=== PATIENT | female | born 1945 | race African-American/Black ===

== ENCOUNTER 2023-07-18 11:20 | Inpatient (IN) | payer MEDICAID ==
[~2023-07-18] VITALS: Ht 165.1 cm; Wt 108.0 kg
[2023-07-18] MEDS: ADENOSINE 3 MG/ML 2ML VIAL IV ONE ×2 (11:30→12:11)
[2023-07-18 12:08] LABS: BASOPHILS % 0.2 % (0.0-2.0); DIFFERENTIAL COMMENT 0; EOSINOPHILS % 1.4 % (0.0-5.0); HEMOGLOBIN. 12.4 g/dL (12.0-16.0); LYMPHOCYTES % 19.1 % (20.0-50.0); MEAN CORPUSCULAR HEMOGLOBIN 23.5 pg (28.0-32.0); MEAN CORPUSCULAR HGB CONC 31.9 g/dL (31.0-37.0); MEAN CORPUSCULAR VOLUME 73.7 fL (81.0-99.0); MEAN PLATELET VOLUME 8.1 fl (7.4-10.4); MONOCYTES % 4.4 % (2.0-8.0); NEUTROPHILS % 74.9 % (40.0-76.0); PLATELET 357 x1000/uL (130-400); RED BLOOD CELL COUNT 5.29 mill/uL (4.2-5.4); RED CELL DISTRIBUTION WIDTH 17.7 % (11.6-14.6); WHITE BLOOD COUNT 14.4 x1000/uL (4.5-11.0)
[2023-07-18] MEDS: SODIUM CHLORIDE 0.9% 1000ML BAG (SEPSIS BOLUS) IV ONE (12:11)
[2023-07-18 12:17] LABS: PROTHROMBIN TIME 11.1 sec (9.6-11.0)
[2023-07-18 12:21] LABS: CHLORIDE 108 mEq/L (98-107); POTASSIUM 3.6 mEq/L (3.5-5.1); SODIUM 142 mEq/L (136-145)
[2023-07-18 12:22] LABS: CARBON DIOXIDE 28 mEq/L (21-32)
[2023-07-18 12:23] LABS: CALCIUM 9.6 mg/dL (8.7-10.4)
[2023-07-18 12:27] LABS: CREATININE 0.9 mg/dL (0.6-1.0)
[2023-07-18 12:28] LABS: GLUCOSE 112 mg/dL (70-105); TROPONIN I HIGH SENSITIVITY 11 ng/L (3.0-34); UREA NITROGEN BLOOD 13 mg/dL (9-23)
[2023-07-18 12:29] LABS: ALANINE AMINOTRANSFERASE 10 IU/L (10-49); ASPARTATE AMINOTRANSFERASE 18 IU/L (<34)
[2023-07-18 12:30] LABS: ALBUMIN 3.6 g/dL (3.2-4.8); BILIRUBIN TOTAL 0.3 mg/dL (0.1-1.0); LACTIC ACID 2.7 mmol/L (0.4-2.0); PROTEIN TOTAL 7.4 g/dL (6.0-8.3)
[2023-07-18] MEDS: PIPERACILLIN/TAZO 3.375G/50ML 50 ML IV NR (13:30)
[2023-07-18] MEDS: VANCOMYCIN 1G PREMIX 200 ML IV NR (14:10)
[2023-07-18 14:29] LABS: TROPONIN I HIGH SENSITIVITY 12 ng/L (3.0-34)
[2023-07-19] VITALS (7 sets, daily range): BP systolic 128–168; BP diastolic 54–84; PULSE 66–77; RESP 18–20; TEMP 96.3–98
[2023-07-19] MEDS ORDERED: DEXTROSE 50% WATER 50ML SYRINGE IV PRN (03:30)
[2023-07-19] MEDS: BLOOD SUGAR DIAGNOSTIC STRIP TEST SCH (06:40)
[2023-07-19] MEDS: INSULIN LISPRO 100 UNITS/ML SUBCUT SCH (07:10)
[2023-07-19] MEDS: ASPIRIN 81MG TABLET PO SCH (09:34)
[2023-07-19] MEDS: METOPROLOL TARTRATE 50MG TABLET PO SCH (09:35)
[2023-07-19 16:22] LABS: BASOPHILS % 0.3 % (0.0-2.0); DIFFERENTIAL COMMENT 0; EOSINOPHILS % 1.6 % (0.0-5.0); HEMATOCRIT. 35.4 % (36.0-48.0); HEMOGLOBIN. 10.9 g/dL (12.0-16.0); LYMPHOCYTES % 15.2 % (20.0-50.0); MEAN CORPUSCULAR HEMOGLOBIN 22.9 pg (28.0-32.0); MEAN CORPUSCULAR HGB CONC 30.8 g/dL (31.0-37.0); MEAN CORPUSCULAR VOLUME 74.5 fL (81.0-99.0); MEAN PLATELET VOLUME 8.4 fl (7.4-10.4); MONOCYTES % 6.3 % (2.0-8.0); NEUTROPHILS % 76.6 % (40.0-76.0); PLATELET 339 x1000/uL (130-400); RED BLOOD CELL COUNT 4.75 mill/uL (4.2-5.4); RED CELL DISTRIBUTION WIDTH 17.8 % (11.6-14.6); WHITE BLOOD COUNT 16.4 x1000/uL (4.5-11.0)
[2023-07-19 16:32] LABS: CHLORIDE 109 mEq/L (98-107); POTASSIUM 3.7 mEq/L (3.5-5.1); SODIUM 142 mEq/L (136-145)
[2023-07-19 16:33] LABS: CARBON DIOXIDE 27 mEq/L (21-32)
[2023-07-19 16:34] LABS: CALCIUM 9.4 mg/dL (8.7-10.4)
[2023-07-19 16:38] LABS: CREATININE 0.8 mg/dL (0.6-1.0); GLUCOSE 98 mg/dL (70-105)
[2023-07-19 16:39] LABS: LDL CHOLESTEROL 111 mg/dL (5-100); TRIGLYCERIDE 86 mg/dL (0-150); UREA NITROGEN BLOOD 14 mg/dL (9-23)
[2023-07-19 16:40] LABS: TROPONIN I HIGH SENSITIVITY 9 ng/L (3.0-34)
[2023-07-19 16:41] LABS: CHOLESTEROL 141 mg/dL (<200); HDL CHOLESTEROL 32 mg/dL (>65)
[2023-07-19 16:43] LABS: THYROID STIMULATING HORMONE 3.02 uIU/mL (0.55-4.78)
[2023-07-19] MEDS: CEFTRIAXONE 1GM/50ML 50 ML IV SCH (21:12)
[2023-07-20] VITALS: BP 124/54; PULSE 64; RESP 20; TEMP 96.1
[2023-07-20 04:00] VITALS: BP 133/62; PULSE 65; RESP 18; TEMP 98.1
[2023-07-20] MEDS: ACETAMINOPHEN 325MG TABLET PO PRN (04:34)
[2023-07-20 06:26] LABS: BASOPHILS % 0.1 % (0.0-2.0); DIFFERENTIAL COMMENT 0; EOSINOPHILS % 2.1 % (0.0-5.0); HEMATOCRIT. 34.3 % (36.0-48.0); HEMOGLOBIN. 10.7 g/dL (12.0-16.0); LYMPHOCYTES % 18.6 % (20.0-50.0); MEAN CORPUSCULAR HEMOGLOBIN 22.7 pg (28.0-32.0); MEAN CORPUSCULAR HGB CONC 31.1 g/dL (31.0-37.0); MEAN PLATELET VOLUME 8.4 fl (7.4-10.4); NEUTROPHILS % 74.2 % (40.0-76.0); PLATELET 305 x1000/uL (130-400); RED CELL DISTRIBUTION WIDTH 17.5 % (11.6-14.6); WHITE BLOOD COUNT 15.3 x1000/uL (4.5-11.0)
[2023-07-20 06:37] LABS: CARBON DIOXIDE 27 mEq/L (21-32); CHLORIDE 107 mEq/L (98-107); POTASSIUM 3.9 mEq/L (3.5-5.1); SODIUM 141 mEq/L (136-145)
[2023-07-20 06:38] LABS: CALCIUM 9.5 mg/dL (8.7-10.4)
[2023-07-20 06:43] LABS: CREATININE 0.7 mg/dL (0.6-1.0); GLUCOSE 85 mg/dL (70-105); UREA NITROGEN BLOOD 15 mg/dL (9-23)
[2023-07-20 08:00] VITALS: BP 141/65; PULSE 68; RESP 20; TEMP 98
[2023-07-20 10:52] LABS: CLARITY URINE TURBID (CLEAR); COLOR URINE RED (YELLOW); GLUCOSE URINE NEGATIVE (NEGATIVE); KETONES URINE NEGATIVE (NEGATIVE); LEUKOCYTE ESTERASE URINE 2+ (NEGATIVE); NITRITE URINE NEGATIVE (NEGATIVE); OCCULT BLOOD URINE 3+ (NEGATIVE); PH URINE 5.5 (4.5-8.0); PROTEIN URINE 2+ (NEGATIVE); SPECIFIC GRAVITY URINE 1.025 (1.005-1.030); UROBILINOGEN URINE 0.2 E.U./dL (0.2-1.0)
[2023-07-20] MEDS: PANTOT AC/MIN OIL/PET HY-PHL OINT (AQUAPHOR) TOP SCH (11:12)
[2023-07-20 11:24] LABS: BACTERIA URINE TRACE; RBC URINE TNTC /hpf (0-2); SQUAMOUS EPITHELIAL CELL URINE 1+ /lpf (RARE/1+); WBC URINE 25-50 /hpf (0-2); YEAST URINE NONE SEEN
[2023-07-20 12:00] VITALS: BP 122/68; PULSE 60; RESP 20; TEMP 97.5
[2023-07-20] MEDS ORDERED: LEVO-65 MT (12:57)
[2023-07-20] MEDS ORDERED: METO-539 PO (12:57)
[2023-07-20 16:00] VITALS: BP 121/67; PULSE 64; RESP 20; TEMP 97.9
[2023-07-20 20:00] VITALS: BP 114/56; PULSE 60; RESP 18; TEMP 97.9
[2023-07-21] VITALS: BP 117/51; PULSE 62; RESP 19; TEMP 97.9
[2023-07-21 04:00] VITALS: BP 161/59; PULSE 68; RESP 18; TEMP 96.3
[2023-07-21 08:00] VITALS: BP 126/51; PULSE 66; RESP 18; TEMP 96.9
[2023-07-21 12:00] VITALS: BP 140/61; PULSE 70; RESP 18; TEMP 97.8
[2023-07-21] MEDS ORDERED: DILTIAZEM HCL 5MG/ML 5ML VIAL IV PRN (14:30)
[2023-07-21 16:00] VITALS: BP 153/84; PULSE 74; RESP 17; TEMP 97.1
[2023-07-21 20:00] VITALS: BP 163/59; PULSE 69; RESP 19; TEMP 97.9
[2023-07-21] MEDS: DILTIAZEM HCL 30MG TABLET PO SCH (21:29)
[2023-07-21 21:51] LABS: BASOPHILS % 0.3 % (0.0-2.0); DIFFERENTIAL COMMENT 0; EOSINOPHILS % 1.6 % (0.0-5.0); HEMOGLOBIN. 10.8 g/dL (12.0-16.0); LYMPHOCYTES % 13.9 % (20.0-50.0); MEAN CORPUSCULAR HEMOGLOBIN 22.3 pg (28.0-32.0); MEAN CORPUSCULAR HGB CONC 30.1 g/dL (31.0-37.0); MEAN CORPUSCULAR VOLUME 74.3 fL (81.0-99.0); MEAN PLATELET VOLUME 8.6 fl (7.4-10.4); MONOCYTES % 4.8 % (2.0-8.0); NEUTROPHILS % 79.4 % (40.0-76.0); PLATELET 292 x1000/uL (130-400); RED BLOOD CELL COUNT 4.85 mill/uL (4.2-5.4); RED CELL DISTRIBUTION WIDTH 17.8 % (11.6-14.6); WHITE BLOOD COUNT 16.8 x1000/uL (4.5-11.0)
[2023-07-21 21:59] LABS: CHLORIDE 106 mEq/L (98-107); POTASSIUM 4.4 mEq/L (3.5-5.1); SODIUM 139 mEq/L (136-145)
[2023-07-21 22:00] LABS: CARBON DIOXIDE 25 mEq/L (21-32)
[2023-07-21 22:01] LABS: CALCIUM 9.8 mg/dL (8.7-10.4)
[2023-07-21 22:05] LABS: CREATININE 0.9 mg/dL (0.6-1.0); GLUCOSE 103 mg/dL (70-105)
[2023-07-21 22:06] LABS: UREA NITROGEN BLOOD 14 mg/dL (9-23)
[2023-07-22] VITALS: BP 157/75; PULSE 68; RESP 19; TEMP 97.8
[2023-07-22 04:00] VITALS: BP 129/68; PULSE 76; RESP 19; TEMP 98
[2023-07-22 08:00] VITALS: BP 123/66; PULSE 76; RESP 18; TEMP 96.7
[2023-07-22 12:00] VITALS: BP 144/74; PULSE 78; RESP 18; TEMP 97.2
[2023-07-22] MEDS: VANCOMYCIN 1.5GM/250ML IV NR (12:20)
[2023-07-22 16:00] VITALS: BP 118/60; PULSE 80; RESP 18; TEMP 97.1
[2023-07-22 20:00] VITALS: BP 151/57; PULSE 80; RESP 19; TEMP 98
[2023-07-23] VITALS: BP 146/71; PULSE 76; RESP 20; TEMP 97.8
[2023-07-23 04:00] VITALS: BP 133/63; PULSE 76; RESP 19; TEMP 98.7
[2023-07-23 06:26] LABS: CARBON DIOXIDE 26 mEq/L (21-32); CHLORIDE 106 mEq/L (98-107); POTASSIUM 3.9 mEq/L (3.5-5.1); SODIUM 140 mEq/L (136-145)
[2023-07-23 06:27] LABS: CALCIUM 9.5 mg/dL (8.7-10.4)
[2023-07-23 06:32] LABS: CREATININE 0.7 mg/dL (0.6-1.0); GLUCOSE 83 mg/dL (70-105); UREA NITROGEN BLOOD 12 mg/dL (9-23)
[2023-07-23 06:47] LABS: BASOPHILS % 0.5 % (0.0-2.0); DIFFERENTIAL COMMENT 0; EOSINOPHILS % 2.2 % (0.0-5.0); HEMATOCRIT. 30.8 % (36.0-48.0); HEMOGLOBIN. 9.9 g/dL (12.0-16.0); LYMPHOCYTES % 18.9 % (20.0-50.0); MEAN CORPUSCULAR HEMOGLOBIN 23.3 pg (28.0-32.0); MEAN CORPUSCULAR VOLUME 72.8 fL (81.0-99.0); MEAN PLATELET VOLUME 8.9 fl (7.4-10.4); MONOCYTES % 5.3 % (2.0-8.0); NEUTROPHILS % 73.1 % (40.0-76.0); PLATELET 317 x1000/uL (130-400); RED BLOOD CELL COUNT 4.23 mill/uL (4.2-5.4); RED CELL DISTRIBUTION WIDTH 17.7 % (11.6-14.6); WHITE BLOOD COUNT 13.3 x1000/uL (4.5-11.0)
[2023-07-23 08:00] VITALS: BP 150/72; PULSE 77; RESP 20; TEMP 97.4
[2023-07-23 12:00] VITALS: BP 128/59; PULSE 65; RESP 18; TEMP 98.1
[2023-07-23] MEDS: VANCOMYCIN 1GM/200ML PMX (BAXTER) IV SCH (12:03)
[2023-07-23 16:00] VITALS: BP 150/76; PULSE 76; RESP 20; TEMP 97.3
[2023-07-23] MEDS ORDERED: *PATIENT'S OWN MEDICATION STORAGE XX SCH (19:00)
[2023-07-23 20:00] VITALS: BP 134/59; PULSE 77; RESP 18; TEMP 97.1
[2023-07-23] MEDS: MEDROXYPROGESTERONE ACET 5MG TABLET PO SCH (21:00)
[2023-07-24] VITALS: BP 137/56; PULSE 74; RESP 18; TEMP 97.2
[2023-07-24 04:00] VITALS: BP 142/55; PULSE 76; RESP 18; TEMP 97.3
[2023-07-24 08:00] VITALS: BP 143/76; PULSE 96; RESP 18; TEMP 97.4
[2023-07-24 12:00] VITALS: BP 156/68; PULSE 74; RESP 18; TEMP 97.9
[2023-07-24 16:00] VITALS: BP 146/73; PULSE 77; RESP 18; TEMP 98.1
[2023-07-24 20:00] VITALS: BP 126/57; PULSE 75; RESP 18; TEMP 97.7
[2023-07-25] VITALS: BP 128/60; PULSE 73; RESP 20; TEMP 97.7
[2023-07-25 04:00] VITALS: BP 146/62; PULSE 76; RESP 20; TEMP 97.5
[2023-07-25] MEDS: MORPHINE SULFATE 2 MG/ML CPJ (NOT FOR IM USE) IV ONE (07:32)
[2023-07-25] MEDS: MORPHINE SULFATE 2 MG/ML CPJ (NOT FOR IM USE) IV NR (08:32)
[2023-07-25 09:29] VITALS: BP 125/56; PULSE 74; RESP 18; TEMP 98.2
[2023-07-25] MEDS: VANCOMYCIN 1000MG/250ML IV SCH (12:00)
[2023-07-25 14:00] VITALS: BP 124/50; PULSE 71; RESP 18; TEMP 98
[2023-07-25 16:00] VITALS: BP 139/65; PULSE 75; RESP 20; TEMP 98
[2023-07-25 20:00] VITALS: BP 154/76; PULSE 80; RESP 17; TEMP 97.2
[2023-07-26] VITALS: BP 169/71; PULSE 81; RESP 20; TEMP 96.4
[2023-07-26 04:00] VITALS: BP 136/50; PULSE 77; RESP 18; TEMP 97.9
[2023-07-26 06:57] LABS: BASOPHILS % 0.2 % (0.0-2.0); DIFFERENTIAL COMMENT 0; HEMATOCRIT. 29.4 % (36.0-48.0); LYMPHOCYTES % 17.5 % (20.0-50.0); MEAN CORPUSCULAR HEMOGLOBIN 22.8 pg (28.0-32.0); MEAN CORPUSCULAR HGB CONC 30.7 g/dL (31.0-37.0); MEAN CORPUSCULAR VOLUME 74.4 fL (81.0-99.0); MEAN PLATELET VOLUME 8.4 fl (7.4-10.4); MONOCYTES % 5.6 % (2.0-8.0); NEUTROPHILS % 74.7 % (40.0-76.0); PLATELET 364 x1000/uL (130-400); RED BLOOD CELL COUNT 3.95 mill/uL (4.2-5.4); RED CELL DISTRIBUTION WIDTH 18.1 % (11.6-14.6); WHITE BLOOD COUNT 16.1 x1000/uL (4.5-11.0)
[2023-07-26 07:21] LABS: CALCIUM 9.7 mg/dL (8.7-10.4); CHLORIDE 108 mEq/L (98-107); POTASSIUM 4.8 mEq/L (3.5-5.1); SODIUM 140 mEq/L (136-145)
[2023-07-26 07:22] LABS: CARBON DIOXIDE 26 mEq/L (21-32)
[2023-07-26 07:27] LABS: CREATININE 0.8 mg/dL (0.6-1.0); GLUCOSE 78 mg/dL (70-105); UREA NITROGEN BLOOD 15 mg/dL (9-23)
[2023-07-26 08:00] VITALS: BP 145/74; PULSE 67; RESP 18; TEMP 96.8
[2023-07-26 12:00] VITALS: BP 139/51; PULSE 80; RESP 18; TEMP 96.9
[2023-07-26 16:00] VITALS: BP 126/55; PULSE 86; RESP 18; TEMP 97.8
[2023-07-26 20:00] VITALS: BP 136/88; PULSE 86; RESP 19; TEMP 99.1
[2023-07-26 21:26] LABS: CLARITY URINE CLOUDY (CLEAR); COLOR URINE YELLOW (YELLOW); GLUCOSE URINE NEGATIVE (NEGATIVE); KETONES URINE NEGATIVE (NEGATIVE); LEUKOCYTE ESTERASE URINE 3+ (NEGATIVE); NITRITE URINE NEGATIVE (NEGATIVE); OCCULT BLOOD URINE 3+ (NEGATIVE); PH URINE 6.5 (4.5-8.0); PROTEIN URINE 1+ (NEGATIVE); SPECIFIC GRAVITY URINE 1.014 (1.005-1.030); UROBILINOGEN URINE 0.2 E.U./dL (0.2-1.0)
[2023-07-26 21:53] LABS: BACTERIA URINE 2+; RBC URINE 25-50 /hpf (0-2); SQUAMOUS EPITHELIAL CELL URINE 1+ /lpf (RARE/1+)
[2023-07-27] VITALS: BP 132/61; PULSE 76; RESP 18; TEMP 98.6
[2023-07-27 04:00] VITALS: BP 140/67; PULSE 77; RESP 18; TEMP 98.1
[2023-07-27 07:08] LABS: CARBON DIOXIDE 24 mEq/L (21-32); CHLORIDE 108 mEq/L (98-107); POTASSIUM 3.9 mEq/L (3.5-5.1); SODIUM 139 mEq/L (136-145)
[2023-07-27 07:13] LABS: CREATININE 0.7 mg/dL (0.6-1.0)
[2023-07-27 07:14] LABS: GLUCOSE 79 mg/dL (70-105); UREA NITROGEN BLOOD 15 mg/dL (9-23)
[2023-07-27 07:25] LABS: BASOPHILS % 0.3 % (0.0-2.0); DIFFERENTIAL COMMENT 0; EOSINOPHILS % 2.1 % (0.0-5.0); HEMATOCRIT. 27.9 % (36.0-48.0); HEMOGLOBIN. 8.8 g/dL (12.0-16.0); LYMPHOCYTES % 19.5 % (20.0-50.0); MEAN CORPUSCULAR HEMOGLOBIN 23.1 pg (28.0-32.0); MEAN CORPUSCULAR HGB CONC 31.5 g/dL (31.0-37.0); MEAN CORPUSCULAR VOLUME 73.2 fL (81.0-99.0); MEAN PLATELET VOLUME 8.5 fl (7.4-10.4); NEUTROPHILS % 73.1 % (40.0-76.0); PLATELET 361 x1000/uL (130-400); RED BLOOD CELL COUNT 3.81 mill/uL (4.2-5.4); RED CELL DISTRIBUTION WIDTH 18.1 % (11.6-14.6); WHITE BLOOD COUNT 14.1 x1000/uL (4.5-11.0)
[2023-07-27 08:00] VITALS: BP 146/53; PULSE 80; RESP 18; TEMP 97.4
[2023-07-27 12:00] VITALS: BP 121/57; PULSE 80; RESP 18; TEMP 97.3
[2023-07-27 16:00] VITALS: BP 142/63; PULSE 77; RESP 18; TEMP 97.2
[2023-07-27 20:00] VITALS: BP 148/76; PULSE 78; RESP 19; TEMP 98.8
[2023-07-28] VITALS: BP 136/42; PULSE 79; RESP 19; TEMP 97.9
[2023-07-28 04:00] VITALS: BP 166/72; PULSE 84; RESP 19; TEMP 98.1
[2023-07-28 08:00] VITALS: BP 153/72; PULSE 78; RESP 20; TEMP 98
[2023-07-28 12:00] VITALS: BP 140/69; PULSE 80; RESP 20; TEMP 97.9
[2023-07-28 16:00] VITALS: BP 157/67; PULSE 74; RESP 20; TEMP 97.4
[2023-07-28 20:00] VITALS: BP 120/58; RESP 19; TEMP 97.9
[2023-07-29] VITALS: BP 126/76; PULSE 70; RESP 19; TEMP 97.6
[2023-07-29 04:00] VITALS: BP 124/74; PULSE 85; RESP 18; TEMP 98.4
[2023-07-29 08:00] VITALS: BP 134/53; PULSE 76; RESP 20; TEMP 97.2
[2023-07-29 12:00] VITALS: BP 121/60; PULSE 79; RESP 19; TEMP 99.1
[2023-07-29 16:00] VITALS: BP 140/62; PULSE 84; RESP 20; TEMP 97.9
[2023-07-29 20:00] VITALS: BP 139/72; PULSE 83; RESP 18; TEMP 97.3
[2023-07-30] VITALS: BP 121/69; PULSE 84; RESP 19; TEMP 97.8
[2023-07-30 04:00] VITALS: BP 123/64; PULSE 86; RESP 19; TEMP 97.3
[2023-07-30 08:00] VITALS: BP 141/65; PULSE 89; RESP 18; TEMP 97.8
[2023-07-30] MEDS ORDERED: DILTIAZEM HCL 90MG CAPSULE SR 12HR PO SCH (09:00)
[2023-07-30] MEDS: DILTIAZEM HCL 120MG CAPSULE ER 24HR PO SCH (09:04)
[2023-07-30 12:00] VITALS: BP 139/69; PULSE 83; RESP 20; TEMP 98.4
[2023-07-30 20:00] VITALS: PULSE 85; RESP 20; TEMP 97.7
[2023-07-30] MEDS: VANCOMYCIN 1000MG/250ML IV SCH (22:07)
[2023-07-31] VITALS (7 sets, daily range): BP systolic 104–156; BP diastolic 51–74; PULSE 71–92; RESP 18–20; TEMP 97–98
[2023-07-31 06:54] LABS: CARBON DIOXIDE 25 mEq/L (21-32); CHLORIDE 106 mEq/L (98-107); POTASSIUM 4.3 mEq/L (3.5-5.1); SODIUM 139 mEq/L (136-145)
[2023-07-31 06:55] LABS: CALCIUM 9.7 mg/dL (8.7-10.4)
[2023-07-31 06:59] LABS: CREATININE 0.8 mg/dL (0.6-1.0); GLUCOSE 71 mg/dL (70-105)
[2023-07-31 07:00] LABS: UREA NITROGEN BLOOD 17 mg/dL (9-23)
[2023-07-31] MEDS: VANCOMYCIN 1000MG/250ML IV SCH (11:40)
[2023-08-01 04:00] VITALS: BP 147/67; PULSE 87; RESP 17; TEMP 96.7
[2023-08-01 07:37] LABS: BASOPHILS % 0.3 % (0.0-2.0); DIFFERENTIAL COMMENT 0; EOSINOPHILS % 1.8 % (0.0-5.0); HEMATOCRIT. 30.9 % (36.0-48.0); HEMOGLOBIN. 9.6 g/dL (12.0-16.0); LYMPHOCYTES % 16.6 % (20.0-50.0); MEAN CORPUSCULAR HEMOGLOBIN 22.5 pg (28.0-32.0); MEAN CORPUSCULAR HGB CONC 31.1 g/dL (31.0-37.0); MEAN CORPUSCULAR VOLUME 72.5 fL (81.0-99.0); MEAN PLATELET VOLUME 7.7 fl (7.4-10.4); MONOCYTES % 4.7 % (2.0-8.0); NEUTROPHILS % 76.6 % (40.0-76.0); PLATELET 429 x1000/uL (130-400); RED BLOOD CELL COUNT 4.26 mill/uL (4.2-5.4)
[2023-08-01 08:00] VITALS: BP 159/61; PULSE 81; RESP 19; TEMP 97.2
[2023-08-01] MEDS: VANCOMYCIN 1GM/200ML PMX (BAXTER) IV SCH (10:42)
[2023-08-01 12:00] VITALS: BP 141/57; PULSE 86; RESP 19; TEMP 97.9
[2023-08-01 14:19] LABS: CHLORIDE 108 mEq/L (98-107); POTASSIUM 4.5 mEq/L (3.5-5.1); SODIUM 140 mEq/L (136-145)
[2023-08-01 14:20] LABS: CARBON DIOXIDE 24 mEq/L (21-32)
[2023-08-01 14:21] LABS: CALCIUM 9.6 mg/dL (8.7-10.4)
[2023-08-01 14:25] LABS: GLUCOSE 83 mg/dL (70-105); UREA NITROGEN BLOOD 22 mg/dL (9-23)
[2023-08-01 16:00] VITALS: BP 137/58; PULSE 82; RESP 19; TEMP 97.9
[2023-08-01 20:00] VITALS: BP 122/54; PULSE 85; RESP 18; TEMP 97.3
[2023-08-02 04:00] VITALS: BP 138/60; PULSE 81; RESP 18; TEMP 97.2
[2023-08-02] MEDS: VANCOMYCIN 1GM/200ML PMX (BAXTER) IV SCH (05:51)
[2023-08-02 08:00] VITALS: BP_SYST 116; BP_SYST 128; BP_DIAS 46; BP_DIAS 59; PULSE 50; PULSE 89; RESP 18; TEMP 96.9; TEMP 98.4
[2023-08-02 10:04] LABS: BASOPHILS % 0.5 % (0.0-2.0); DIFFERENTIAL COMMENT 0; EOSINOPHILS % 1.6 % (0.0-5.0); HEMATOCRIT. 27.9 % (36.0-48.0); HEMOGLOBIN. 8.6 g/dL (12.0-16.0); LYMPHOCYTES % 16.8 % (20.0-50.0); MEAN CORPUSCULAR HGB CONC 30.8 g/dL (31.0-37.0); MEAN CORPUSCULAR VOLUME 71.5 fL (81.0-99.0); MONOCYTES % 4.3 % (2.0-8.0); NEUTROPHILS % 76.8 % (40.0-76.0); PLATELET 448 x1000/uL (130-400); WHITE BLOOD COUNT 15.5 x1000/uL (4.5-11.0)
[2023-08-02 11:03] LABS: CHLORIDE 107 mEq/L (98-107); POTASSIUM 3.7 mEq/L (3.5-5.1); SODIUM 139 mEq/L (136-145)
[2023-08-02 11:04] LABS: CALCIUM 9.5 mg/dL (8.7-10.4); CARBON DIOXIDE 23 mEq/L (21-32)
[2023-08-02 11:09] LABS: CREATININE 0.8 mg/dL (0.6-1.0); GLUCOSE 114 mg/dL (70-105); UREA NITROGEN BLOOD 17 mg/dL (9-23)
[2023-08-02 12:00] VITALS: BP 115/76; PULSE 94; RESP 20; TEMP 98.4
[2023-08-02 16:00] VITALS: BP 121/58; PULSE 75; RESP 20; TEMP 98
[2023-08-02 20:00] VITALS: BP 136/55; PULSE 90; RESP 18; TEMP 97.3
[2023-08-03] VITALS: BP 138/64; PULSE 76; RESP 18; TEMP 98.2
[2023-08-03 04:00] VITALS: BP 144/62; PULSE 73; RESP 18; TEMP 98
[2023-08-03 06:55] LABS: CARBON DIOXIDE 24 mEq/L (21-32); CHLORIDE 107 mEq/L (98-107); POTASSIUM 4.4 mEq/L (3.5-5.1); SODIUM 140 mEq/L (136-145)
[2023-08-03 06:57] LABS: CALCIUM 9.9 mg/dL (8.7-10.4)
[2023-08-03 07:00] LABS: CREATININE 0.8 mg/dL (0.6-1.0)
[2023-08-03 07:01] LABS: GLUCOSE 78 mg/dL (70-105)
[2023-08-03 07:02] LABS: UREA NITROGEN BLOOD 17 mg/dL (9-23)
[2023-08-03 07:07] LABS: BASOPHILS % 0.5 % (0.0-2.0); DIFFERENTIAL COMMENT 0; HEMATOCRIT. 30.4 % (36.0-48.0); HEMOGLOBIN. 9.4 g/dL (12.0-16.0); LYMPHOCYTES % 18.7 % (20.0-50.0); MEAN CORPUSCULAR HEMOGLOBIN 22.2 pg (28.0-32.0); MEAN CORPUSCULAR HGB CONC 30.8 g/dL (31.0-37.0); MEAN CORPUSCULAR VOLUME 72.1 fL (81.0-99.0); MEAN PLATELET VOLUME 8.2 fl (7.4-10.4); MONOCYTES % 5.2 % (2.0-8.0); NEUTROPHILS % 73.6 % (40.0-76.0); PLATELET 440 x1000/uL (130-400); RED BLOOD CELL COUNT 4.22 mill/uL (4.2-5.4); RED CELL DISTRIBUTION WIDTH 18.1 % (11.6-14.6)
[2023-08-03 08:00] VITALS: BP 147/65; PULSE 79; RESP 20; TEMP 96.9
[2023-08-03 12:00] VITALS: BP 144/69; PULSE 81; RESP 20; TEMP 98
[2023-08-03 16:00] VITALS: BP 128/57; PULSE 81; RESP 18; TEMP 98
[2023-08-03 20:00] VITALS: BP 132/50; PULSE 88; RESP 20; TEMP 98.6
[2023-08-04] VITALS: BP 145/56; PULSE 84; RESP 20; TEMP 97.9
[2023-08-04 04:00] VITALS: BP 144/54; PULSE 86; RESP 20; TEMP 97.9
[2023-08-04 06:35] LABS: CARBON DIOXIDE 23 mEq/L (21-32); CHLORIDE 107 mEq/L (98-107); POTASSIUM 4.5 mEq/L (3.5-5.1); SODIUM 139 mEq/L (136-145)
[2023-08-04 06:36] LABS: CALCIUM 9.4 mg/dL (8.7-10.4)
[2023-08-04 06:41] LABS: CREATININE 0.8 mg/dL (0.6-1.0); GLUCOSE 81 mg/dL (70-105); UREA NITROGEN BLOOD 17 mg/dL (9-23)
[2023-08-04 09:43] VITALS: BP 150/60; PULSE 82; RESP 20; TEMP 98
[2023-08-04 12:00] VITALS: BP 136/56; PULSE 85; RESP 20; TEMP 98.1
[2023-08-04 16:00] VITALS: BP 128/54; PULSE 78; RESP 20; TEMP 98.2
[2023-08-04 20:00] VITALS: BP 134/51; PULSE 98; RESP 18; TEMP 97.1
[2023-08-05] VITALS: BP 138/57; PULSE 81; RESP 18; TEMP 98.7
[2023-08-05 08:00] VITALS: BP 105/52; PULSE 80; RESP 20; TEMP 96.6
[2023-08-05 12:00] VITALS: BP 107/55; PULSE 78; RESP 19; TEMP 96.3
[2023-08-05 16:00] VITALS: BP 110/65; PULSE 80; RESP 19; TEMP 97.5
[2023-08-05 20:00] VITALS: BP 130/57; PULSE 84; RESP 20; TEMP 97.9
[2023-08-06] VITALS: BP 132/69; PULSE 82; RESP 18; TEMP 97.5
[2023-08-06 04:00] VITALS: BP 150/71; PULSE 68; RESP 19; TEMP 97.5
[2023-08-06 08:00] VITALS: BP 112/52; PULSE 62; RESP 18; TEMP 99.5
[2023-08-06] MEDS: SULFAMETHOXAZOLE/TRIMETHOPRIM 800/160MG TABLET PO SCH (09:42)
[2023-08-06 20:00] VITALS: BP 149/54; PULSE 83; RESP 19; TEMP 97.5
[2023-08-07] VITALS: BP 135/56; PULSE 79; RESP 19; TEMP 97.7
[2023-08-07 04:00] VITALS: BP 141/68; PULSE 78; RESP 20; TEMP 98.1
[2023-08-07 08:00] VITALS: BP 141/58; PULSE 76; RESP 19; TEMP 97.7
[2023-08-07 12:00] VITALS: BP 127/52; PULSE 85; RESP 19; TEMP 97.9
[2023-08-07 16:00] VITALS: BP 117/57; PULSE 86; RESP 19; TEMP 97.9
[2023-08-08] VITALS: BP 104/53; PULSE 85; RESP 18; TEMP 97.6
[2023-08-08 08:00] VITALS: BP 124/58; PULSE 79; RESP 19; TEMP 97.2
[2023-08-08 12:00] VITALS: BP 123/52; PULSE 83; RESP 19; TEMP 97.4
[2023-08-08 16:00] VITALS: BP 117/51; PULSE 81; RESP 19; TEMP 98.1
[2023-08-08 20:00] VITALS: BP 118/52; PULSE 80; RESP 18; TEMP 97.3
[2023-08-09] VITALS: BP 119/62; PULSE 82; RESP 18; TEMP 97.4
[2023-08-09 04:00] VITALS: BP 120/65; PULSE 82; RESP 18; TEMP 97
[2023-08-09 08:00] VITALS: BP 136/53; PULSE 79; RESP 18; TEMP 98.1
[2023-08-09 12:00] VITALS: BP 124/52; PULSE 80; RESP 18; TEMP 97.9
[2023-08-09 16:00] VITALS: BP 120/54; PULSE 80; RESP 18; TEMP 98.2
[2023-08-09 20:00] VITALS: BP 136/60; PULSE 78; RESP 18; TEMP 97.5
[2023-08-10] VITALS: BP_SYST 112; BP_SYST 114; BP_DIAS 60; BP_DIAS 71; PULSE 81; PULSE 86; RESP 18; TEMP 97.1; TEMP 97.5
[2023-08-10 04:00] VITALS: BP 141/57; PULSE 77; RESP 18; TEMP 96.9
[2023-08-10 06:16] LABS: BASOPHILS % 0.3 % (0.0-2.0); DIFFERENTIAL COMMENT 0; EOSINOPHILS % 2.9 % (0.0-5.0); HEMATOCRIT. 29.4 % (36.0-48.0); HEMOGLOBIN. 9.5 g/dL (12.0-16.0); MEAN CORPUSCULAR HEMOGLOBIN 22.8 pg (28.0-32.0); MEAN CORPUSCULAR HGB CONC 32.5 g/dL (31.0-37.0); MEAN CORPUSCULAR VOLUME 70.2 fL (81.0-99.0); MEAN PLATELET VOLUME 7.8 fl (7.4-10.4); MONOCYTES % 4.5 % (2.0-8.0); NEUTROPHILS % 73.3 % (40.0-76.0); PLATELET 470 x1000/uL (130-400); RED BLOOD CELL COUNT 4.19 mill/uL (4.2-5.4); RED CELL DISTRIBUTION WIDTH 18.4 % (11.6-14.6); WHITE BLOOD COUNT 13.2 x1000/uL (4.5-11.0)
[2023-08-10 06:18] LABS: CHLORIDE 108 mEq/L (98-107); SODIUM 138 mEq/L (136-145)
[2023-08-10 06:19] LABS: CALCIUM 9.2 mg/dL (8.7-10.4); CARBON DIOXIDE 21 mEq/L (21-32)
[2023-08-10 06:24] LABS: ALANINE AMINOTRANSFERASE 36 IU/L (10-49); GLUCOSE 79 mg/dL (70-105); UREA NITROGEN BLOOD 19 mg/dL (9-23)
[2023-08-10 06:26] LABS: ASPARTATE AMINOTRANSFERASE 27 IU/L (<34); BILIRUBIN TOTAL 0.3 mg/dL (0.1-1.0); PROTEIN TOTAL 7.7 g/dL (6.0-8.3)
[2023-08-10 08:00] VITALS: BP 138/50; PULSE 78; RESP 19; TEMP 98.7
[2023-08-10 12:00] VITALS: BP 123/54; PULSE 80; RESP 18; TEMP 98.6
[2023-08-10 16:00] VITALS: BP 125/55; PULSE 79; RESP 19; TEMP 98.9
[2023-08-10 20:00] VITALS: BP 121/55; PULSE 80; RESP 18; TEMP 97.1
[2023-08-11] VITALS: BP 120/53; PULSE 79; RESP 18; TEMP 97.3
[2023-08-11 04:00] VITALS: BP_SYST 129; PULSE 79; RESP 17; TEMP 97.7
[2023-08-11 08:00] VITALS: BP 134/50; PULSE 75; RESP 18; TEMP 98
[2023-08-11 12:00] VITALS: BP 90/60; PULSE 75; RESP 20; TEMP 98
[2023-08-11 18:06] VITALS: BP 134/60; PULSE 81; RESP 18; TEMP 98
[2023-08-11 20:00] VITALS: BP 128/48; PULSE 78; RESP 16; TEMP 96.3
[2023-08-12] VITALS: BP 104/70; PULSE 72; RESP 16; TEMP 96.2
[2023-08-12 04:00] VITALS: BP 108/54; PULSE 74; RESP 17; TEMP 97.3
[2023-08-12 08:00] VITALS: BP 129/62; PULSE 75; RESP 18; TEMP 98.1
[2023-08-12 12:00] VITALS: BP 134/58; PULSE 80; RESP 18; TEMP 97.7
[2023-08-12 16:00] VITALS: BP 113/49; PULSE 79; RESP 18; TEMP 98.3
[2023-08-12 20:00] VITALS: BP 128/53; PULSE 72; RESP 18; TEMP 97.3
[2023-08-13 04:00] VITALS: BP 144/63; PULSE 77; RESP 20; TEMP 97.7
[2023-08-13 08:00] VITALS: BP 129/55; PULSE 75; RESP 18; TEMP 97.7
[2023-08-13 12:00] VITALS: BP 124/82; PULSE 70; RESP 18; TEMP 98.4
[2023-08-13 16:00] VITALS: BP 121/53; PULSE 77; RESP 18; TEMP 97.6
[2023-08-13] MEDS: ENOXAPARIN 30MG/0.3ML SYR SUBCUT SCH (18:07)
[2023-08-13 20:00] VITALS: PULSE 77; RESP 18; TEMP 98.2
[2023-08-14] VITALS: BP 125/62; PULSE 65; RESP 17; TEMP 97.4
[2023-08-14 04:00] VITALS: BP 130/62; PULSE 80; RESP 17; TEMP 97.5
[2023-08-14 08:00] VITALS: BP 126/56; PULSE 76; RESP 20; TEMP 97.3
[2023-08-14 12:00] VITALS: BP 119/62; PULSE 77; RESP 20; TEMP 97.2
[2023-08-14 16:00] VITALS: BP 110/61; PULSE 65; RESP 20; TEMP 98.2
[2023-08-14 20:00] VITALS: BP 134/57; PULSE 79; RESP 18; TEMP 97
[2023-08-15] VITALS: BP 96/50; PULSE 75; RESP 18; TEMP 97.5
[2023-08-15 04:00] VITALS: BP 123/58; PULSE 74; RESP 18; TEMP 97.2
[2023-08-15 08:00] VITALS: BP 137/53; PULSE 75; RESP 20; TEMP 97.9
[2023-08-15 12:00] VITALS: BP 133/55; PULSE 79; RESP 20; TEMP 97.5
[2023-08-15 16:00] VITALS: BP 135/56; PULSE 83; RESP 20; TEMP 97.2
[2023-08-15 20:00] VITALS: BP 126/58; PULSE 81; RESP 20; TEMP 97.3
[2023-08-16] VITALS (7 sets, daily range): BP systolic 102–139; BP diastolic 53–87; PULSE 82–85; RESP 16–20; TEMP 96.9–98
[2023-08-17] VITALS: BP 134/51; PULSE 75; RESP 18; TEMP 96.9
[2023-08-17 04:00] VITALS: BP 155/83; PULSE 91; RESP 18; TEMP 97.3
[2023-08-17 08:00] VITALS: BP 117/48; PULSE 81; RESP 17; TEMP 98.4
[2023-08-17 12:00] VITALS: BP 109/60; PULSE 81; RESP 18; TEMP 98.4
[2023-08-17] MEDS: LACTOBACILLUS GG CAPSULE PO SCH (15:43)
[2023-08-17 16:00] VITALS: BP 112/60; PULSE 76; RESP 19; TEMP 98.2
[2023-08-17 20:00] VITALS: BP 101/53; PULSE 86; RESP 18; TEMP 97.9
[2023-08-18] VITALS: BP 118/59; PULSE 81; RESP 18; TEMP 98.3
[2023-08-18 04:00] VITALS: BP 118/48; PULSE 82; RESP 18; TEMP 97.8
[2023-08-18 08:32] VITALS: BP 144/56; PULSE 78; RESP 18; TEMP 97.8
[2023-08-18 12:57] VITALS: BP 140/65; PULSE 81; RESP 20; TEMP 98
[2023-08-18 17:22] VITALS: BP 125/60; PULSE 80; RESP 20; TEMP 96.9
[2023-08-18 20:00] VITALS: BP 145/63; PULSE 82; RESP 20; TEMP 97.9
[2023-08-19 04:00] VITALS: BP 137/54; PULSE 78; RESP 16; TEMP 98.2
[2023-08-19 08:00] VITALS: BP 124/58; PULSE 79; RESP 18; TEMP 96.3
[2023-08-19] MEDS ORDERED: NALOXONE HCL 0.4MG/ML VIAL IV PRN (10:45)
[2023-08-19] MEDS: HYDROCODONE/ACETAMINOPHEN 5/325MG TABLET PO PRN (10:52)
[2023-08-19 12:00] VITALS: BP 130/60; PULSE 80; RESP 19; TEMP 96.3
[2023-08-19 16:00] VITALS: BP 128/62; PULSE 76; RESP 16; TEMP 97
[2023-08-19 20:00] VITALS: BP 119/62; PULSE 70; RESP 16; TEMP 97.4
[2023-08-20] VITALS: BP 127/55; PULSE 63; RESP 18; TEMP 97.5
[2023-08-20 04:00] VITALS: BP 127/70; PULSE 78; RESP 16; TEMP 97.6
[2023-08-20 08:00] VITALS: BP 128/69; PULSE 76; RESP 18; TEMP 97.9
[2023-08-20 12:00] VITALS: BP 131/58; PULSE 80; RESP 18; TEMP 98.6
[2023-08-20] MEDS ORDERED: DILT120C88 PO (13:16)
[2023-08-20 16:00] VITALS: BP 117/51; PULSE 76; RESP 18; TEMP 98.7
[2023-08-20 20:00] VITALS: BP 128/55; PULSE 82; RESP 18; TEMP 97.7
[2023-08-21 04:00] VITALS: BP 148/54; PULSE 80; RESP 18; TEMP 97.7
[2023-08-21 08:00] VITALS: BP 108/60; PULSE 79; RESP 18; TEMP 97
[2023-08-21 13:02] VITALS: BP 141/56; PULSE 78; RESP 20; TEMP 98.2
[2023-08-21 16:41] VITALS: BP 137/87; RESP 20; TEMP 97
[2023-08-21 20:00] VITALS: BP 128/60; PULSE 83; RESP 19; TEMP 97.4
[2023-08-22] VITALS: BP 133/69; PULSE 85; RESP 19; TEMP 99
[2023-08-22 02:00] VITALS: BP 122/57; PULSE 87; RESP 18; TEMP 98.7
[2023-08-22 04:00] VITALS: BP 122/57; PULSE 87; RESP 18; TEMP 98.7
[2023-08-22 08:00] VITALS: BP 123/55; PULSE 79; RESP 19; TEMP 97.3
[2023-08-22 12:00] VITALS: BP 124/54; PULSE 82; RESP 20; TEMP 97.7
[2023-08-22 12:44] VITALS: BP 124/54; PULSE 82; TEMP 97.7; O2SAT 99
== END 2023-08-22 15:25 | disposition home health service (06) | DRG 201 ==
LOC: ER 11:20 → 5WST 13:54 → EDBEDREQ 13:59 → EDBEDREQSVC 15:50 → 7EST 07-19 00:39 → 6WST 07-29 12:20
PROVIDERS: ADMIT Internal Medicine; ATTEND Internal Medicine
PROC: 0JBP0ZZ Excision of Left Lower Leg Subcutaneous Tissue and Fascia, Open Approach (ICD-10-PCS; principal; 2023-07-25)
DX: I47.10 Supraventricular tachycardia, unspecified (principal); A41.9 Sepsis, unspecified organism; I83.029 Varicose veins of left lower extremity with ulcer of unspecified site; L03.116 Cellulitis of left lower limb; L97.929 Non-pressure chronic ulcer of unspecified part of left lower leg with unspecified severity; E66.01 Morbid (severe) obesity due to excess calories; I10 Essential (primary) hypertension; Z68.39 Body mass index [BMI] 39.0-39.9, adult; I87.2 Venous insufficiency (chronic) (peripheral); E11.622 Type 2 diabetes mellitus with other skin ulcer; L98.492 Non-pressure chronic ulcer of skin of other sites with fat layer exposed; N39.0 Urinary tract infection, site not specified; K52.9 Noninfective gastroenteritis and colitis, unspecified; S81.802A Unspecified open wound, left lower leg, initial encounter; Z74.01 Bed confinement status; X58.XXXA Exposure to other specified factors, initial encounter; Y93.89 Activity, other specified; Y92.89 Other specified places as the place of occurrence of the external cause; Y99.8 Other external cause status
CPT/HCPCS: 36415; 71045; 76856; 80048; 80053; 80061; 80202; 81003; 82962; 83036; 83605; 83880; 84145; 84443; 84484; 85025; 87070; 87077; 87186; 93005; 93306; 93970; 97161; 97165; 99291; C1893; J0153; J0696; J1650; J1815; J2270; J2543; J3370; J7030